=== PATIENT | male | born 1990 | race Caucasian/White ===

== ENCOUNTER 2017-02-16 09:50 | Emergency (ER) | payer OTHER ==
[2017-02-16 11:05] LABS: RBC URINE 3 /hpf (0-3); URINE BACTERIA RARE (<OCC); URINE BILIRUBIN NEGATIVE (NEGATIVE); URINE BLOOD NEGATIVE (NEGATIVE); URINE COLOR Yellow (YELLOW); URINE GLUCOSE (UA) NORMAL (Normal); URINE KETONE NEGATIVE (NEGATIVE); URINE LEUKOCYTE ESTERASE 1+ Leu/uL (Negative); URINE PROTEIN NEGATIVE (NEGATIVE); URINE UROBILINOGEN NORMAL mg/dL (0.2-1.0); WBC URINE 23 /hpf (0-5)
[2017-02-16] MEDS ORDERED: cefTRIAXone (Rocephin) 250 mg Inj IM STA (12:18)
--- NOTE | 2017-02-16 12:29 | C.PDOC ---
History Of Present Illness The patient reports intermittent right shoulder pain over the past several months. The patient states that he had a dislocation 1 year ago but was unable to follow up with an orthopedist. Patient also reports dysuria and frequency over the past several day. Denies fever, hematuria, vomiting, diarrhea, abdominal pain, back pain. Time Seen by Provider: 02/16/17 11:10 Chief Complaint (Nursing): Upper Extremity Problem/Injury History Per: Patient History/Exam Limitations: no limitations Onset/Duration Of Symptoms: Intermittent Episodes Current Symptoms Are (Timing): Still Present Severity: Mild Pain Scale Rating Of: 5 Quality Of Discomfort: Burning Associated Symptoms: denies: Fever, Chills, Vomiting, Back Pain, Chest Pain Alleviating Factors: None Recent travel outside of the [place]: Not to an Endemic Area (recent travel from the [facility]) Past Medical History Reviewed: Historical Data, Nursing Documentation, Vital Signs Vital Signs: Last Vital Signs Temp 98.2 F 02/16/17 13:15 Pulse 71 02/16/17 13:15 Resp 15 02/16/17 13:15 BP 119/78 02/16/17 13:15 Pulse Ox 99 02/16/17 13:15 - Medical History PMH: No Chronic Diseases Surgical History: No Surg Hx, Tonsillectomy Family History: States: No Known Family Hx - Social History Hx Alcohol Use: Yes Hx Substance Use: Yes - Immunization History Hx Tetanus Toxoid Vaccination: No Hx Influenza Vaccination: No Hx Pneumococcal Vaccination: No Review Of Systems Except As Marked, All Systems Reviewed And Found Negative. Constitutional: Negative for: Fever Gastrointestinal: Negative for: Abdominal Pain Genitourinary: Positive for: Dysuria, Frequency Musculoskeletal: Positive for: Shoulder Pain Neurological: Negative for: Weakness, Numbness Physical Exam - Physical Exam Appears: Well, No Acute Distress Skin: Normal Color, Warm, Dry Head: Atraumatic, Normacephalic Eye(s): bilateral: Normal Inspection, PERRL, EOMI Nose: Normal Oral Mucosa: Moist Throat: Normal Neck: Normal ROM, Supple Chest: Symmetrical, No Tenderness Cardiovascular: Rhythm Regular, No Friction Rub, No Murmur Respiratory: Normal Breath Sounds, No Rales, No Rhonchi, No Wheezing Gastrointestinal/Abdominal: Normal Exam, Soft, No Tenderness Back: Normal Inspection, No CVA Tenderness Extremity: Normal ROM, Capillary Refill (< 2 sec), No Deformity, Other ((+) pain to the right shoulder with abduction. No swelling or tenderness) Extremity: Bilateral: Normal Color And Temperature Pulses: Left Radial: Normal, Right Radial: Normal Neurological/Psych: Oriented x3, Normal Cranial Nerves, Normal Motor, Normal Sensation Gait: Steady ED Course And Treatment O2 Sat by Pulse Oximetry: 100 (on RA) Pulse Ox Interpretation: Normal Medical Decision Making Medical Decision Making: Shoulder xray was ordered and is negative for fracture or dislocation. Sling was offered but declined. UA and GC/Chlamydia sent. which is (+) for UTI, will treat with Rocephin and zithromax Disposition - Disposition Referrals: [facility] [place] [Outside] [facility] [Outside] Disposition: HOME/ ROUTINE Disposition Time: 12:25 Condition: GOOD Additional Instructions: Follow up with the Ortho clinic for the shoulder within 1 week. Return if worsened. Contact any sexual partners who may be affected. Prescriptions: Ciprofloxacin [Cipro] 1 tab PO BID #14 tab Instructions: Urinary Tract Infection in Men (GEN), Shoulder Sprain (ED) - Clinical Impression Clinical Impression: UTI (urinary tract infection), Shoulder pain
[2017-02-16 13:16] VITALS: BP 119/78; PULSE 71; RESP 15; TEMP 98.2
--- NOTE | 2017-02-16 13:22 | RAD ---
PROCEDURE: Radiographs of the Right Shoulder HISTORY: pain, limited ROM, dislocation 1 yr ago COMPARISON: No prior. FINDINGS: BONES: Normal. No fracture. JOINTS: Normal. Glenohumeral and acromioclavicular joints preserved. No osteoarthritis. SOFT TISSUES: Normal. OTHER FINDINGS: None. IMPRESSION: Normal radiographs of the right shoulder.
[2017-02-16 15:10] VITALS: O2SAT 100
== END 2017-02-16 13:15 | disposition home or self-care (01) ==
LOC: C.ER 09:50
DX: M25.511 Pain in right shoulder (principal); N39.0 Urinary tract infection, site not specified; B96.89 Other specified bacterial agents as the cause of diseases classified elsewhere
CPT/HCPCS: 73030; 81001; 87491; 87591; 96372; 99285; J0696

== ENCOUNTER 2018-02-14 09:31 | Day surgery (SDC) | payer OTHER ==
[2018-02-08 12:21] VITALS: BMI 24.8
[2018-02-14 10:31] VITALS: O2SAT 100
[2018-02-14] MEDS ORDERED: Bupivacaine HCl 0.25% PF (30 ml) Inj ONE (11:20)
[2018-02-14] MEDS ORDERED: Lidocaine Hydrochloride 0 ML INJ ONE (11:20)
[2018-02-14] MEDS ORDERED: ceFAZolin 1 gm in NS 2 GM/200 ML BAG IVPB ONE (11:27)
[2018-02-14] MEDS ORDERED: Midazolam 2 MG/2 ML VIAL ONE (11:43)
[2018-02-14] MEDS ORDERED: Rocuronium 10 mg/ml (5 ml) ONE (11:43)
[2018-02-14] MEDS ORDERED: Propofol 10 mg/ml Inj (20 ML) ONE (11:43)
[2018-02-14] MEDS ORDERED: Neostigmine Methylsulfate 3mg/3ml Syringe IV ONE (12:16)
[2018-02-14] MEDS ORDERED: Bacitracin Ointment 30 GM TUBE ONE (12:18)
[2018-02-14] MEDS ORDERED: Absorbable Gelatin Sponge Size 12-7 ONE (12:18)
[2018-02-14] MEDS ORDERED: Oxycodone/Acetaminophen 5/325 mg Tab PO PRN (12:37)
[2018-02-14] MEDS ORDERED: HYDROmorphone 0.5 mg/0.5 ml ISec IVP PRN (12:41)
[2018-02-14 14:03] VITALS: RESP 18
[2018-02-14 16:01] VITALS: BP 117/74; PULSE 90; TEMP 98
--- NOTE | 2018-02-14 23:07 | OP ---
PROCEDURE DATE: 02/14/2018 PREOPERATIVE DIAGNOSIS: Complex hemorrhoids. POSTOPERATIVE DIAGNOSES: Complex hemorrhoids with rectal polyp. PROCEDURES PERFORMED: 1. Complex hemorrhoidectomy. 2. Full-thickness transanal excision of rectal polyp. 3. Proctosigmoidoscopy. SURGEON: Donnie Yousif MD ANESTHESIA: General. BLOOD LOSS: 50 mL. POSTOPERATIVE CONDITION: Stable. INDICATIONS FOR SURGERY: A 27-year-old male, presents with rectal pain and bleeding secondary to complex mixed internal/external hemorrhoids, now will undergo complex hemorrhoidectomy along with a proctosigmoidoscopy. GROSS FINDINGS: Besides the complex mixed internal/external hemorrhoid, there was a small rectal polyp noted on proctosigmoidoscopy. A transanal full-thickness excision was performed. DESCRIPTION OF PROCEDURE: The patient was taken to the operating room. General anesthesia was administered and the patient was placed in prone position with buttocks taped open. The rectal area was prepped and draped. Proctosigmoidoscopy was carried out some 15 cm. Exam was limited by poor lighting but a small polyp was noted near the anal verge. Next, a complex right posterior hemorrhoid was grasped with a neel clamp and ligated at its base with a heavy Monocryl suture. A generous elliptical incision was made and flaps were raised to facilitate a tension-free closure. A running closure was then performed using the heavy Monocryl in a double layered fashion. The wound was hemostatic when finished. Next, a full-thickness biopsy was taken of the rectal polyp and the mucosa was reapproximated using heavy Monocryl. The anal canal was packed with Gelfoam and an anal block of 0.25% Marcaine was placed. The patient tolerated procedure well. Returned to recovery room in stable condition. Donnie Yousif MD
== END 2018-02-14 15:36 | disposition home or self-care (01) ==
LOC: C.SDS 09:31
PROVIDERS: ATTEND Surgery
DX: K64.4 Residual hemorrhoidal skin tags (principal); K64.8 Other hemorrhoids
CPT/HCPCS: 45172; 45330; 46255; 88304; J0690; J1885; J2001; J2250; J2405; J2704; J2710; J2765; J3010

== ENCOUNTER 2018-11-05 10:29 | Inpatient (IN) | payer OTHER ==
[2018-11-05 10:29] VITALS: BMI 24.8
--- NOTE | 2018-11-05 11:28 | C.PDOC ---
History Of Present Illness 28 y/o male presents to the ER for evaluation of hemorrhoids. Patient states that he was referred to ER by for hemorrhoidectomy. Patient reports that his last meal was at 8 pm last night.Denies having fever, chills, and other complaints at this time. Time Seen by Provider: 11/05/18 10:47 Chief Complaint (Nursing): GI Problem History Per: Patient History/Exam Limitations: no limitations Onset/Duration Of Symptoms: Days Current Symptoms Are (Timing): Still Present Severity: Moderate Past Medical History Reviewed: Historical Data, Nursing Documentation, Vital Signs Vital Signs: Last Vital Signs Temp 98.6 F 11/05/18 10:37 Pulse 77 11/05/18 10:37 Resp 20 11/05/18 10:37 BP 114/75 11/05/18 10:37 Pulse Ox 100 11/05/18 10:37 - Medical History PMH: No Chronic Diseases Surgical History: Tonsillectomy Family History: States: No Known Family Hx - Social History Hx Alcohol Use: Yes Hx Substance Use: No - Immunization History Hx Tetanus Toxoid Vaccination: No Hx Influenza Vaccination: Yes Hx Pneumococcal Vaccination: No Review Of Systems Except As Marked, All Systems Reviewed And Found Negative. Constitutional: Negative for: Fever, Chills Gastrointestinal: Positive for: Other (hemorrhoids). Negative for: Nausea, Vomiting Physical Exam - Physical Exam Appears: Non-toxic, No Acute Distress Skin: Normal Color, Warm, Dry Head: Atraumatic, Normacephalic Eye(s): bilateral: Normal Inspection Nose: Normal Oral Mucosa: Moist Neck: Supple Chest: Symmetrical Cardiovascular: Rhythm Regular Respiratory: Normal Breath Sounds, No Rales, No Rhonchi, No Wheezing Gastrointestinal/Abdominal: Soft, No Tenderness, No Guarding, No Rebound Neurological/Psych: Oriented x3, Normal Speech ED Course And Treatment - Laboratory Results Result Diagrams: 11/05/18 11:16 11/05/18 11:16 O2 Sat by Pulse Oximetry: 100 (RA) Pulse Ox Interpretation: Normal Medical Decision Making Medical Decision Making: Assessment: Hemorrhoids Plan: * Labs Updates: Case discussed with . Patient has been admitted for hemorrhoids. Disposition Discussed With .: Donnie Yousif Doctor Will See Patient In The: Hospital Counseled Patient/Family Regarding: Studies Performed, Diagnosis - Disposition Disposition: HOSPITALIZED Disposition Time: 11:27 Condition: FAIR Forms: [facility] (Vietnamese) - Clinical Impression Clinical Impression: Hemorrhoids - PA / ELDERLY CAREGIVER / Resident Statement MD/DO has reviewed & agrees with the documentation as recorded. - Scribe Statement The provider has reviewed the documentation as recorded by the Scribe Dick Del Angel Provider Attestation: All medical record entries made by the Scribe were at my direction and personally dictated by me. I have reviewed the chart and agree that the record accurately reflects my personal performance of the history, physical exam, medical decision making, and the department course for this patient. I have also personally directed, reviewed, and agree with the discharge instructions and disposition.
[2018-11-05 11:37] LABS: BASO % 0.7 % (0.0-2.0); EOS # 0.1 K/uL (0.0-0.7); HEMOGLOBIN 14.3 g/dL (12.0-18.0); LYMPH # 2.3 K/uL (1.0-4.3); LYMPH % 35.9 % (20.0-40.0); MEAN CORPUSCULAR HEMOGLOBIN 22.8 pg (27.0-31.0); MEAN CORPUSCULAR HGB CONC 33.1 g/dL (33.0-37.0); MONO # 0.3 K/uL (0.0-0.8); MONO % 5.3 % (0.0-10.0); NEUT # 3.7 K/uL (1.8-7.0); NEUT % 57.1 % (50.0-75.0); NRBC % 0.1 % (0.0-2.0); RBC 6.25 Mil/uL (4.40-5.90); WHITE BLOOD COUNT 6.4 K/uL (4.8-10.8)
[2018-11-05 11:39] LABS: MEAN CELL VOLUME 68.8 fL (80.0-94.0)
[2018-11-05 11:41] LABS: INR 1.3
[2018-11-05 11:51] LABS: ALB/GLOB RATIO 1.6 (1.0-2.1); ALBUMIN 4.9 g/dL (3.5-5.0); ALT/SGPT 22 U/L (21-72); AST/SGOT 25 U/L (17-59); BLOOD UREA NITROGEN 19 mg/dL (9-20); CALCIUM 9.3 mg/dl (8.6-10.4); GFR NON-AFRICAN AMERICAN > 60
[2018-11-05] MEDS ORDERED: Bupivacaine 0.25% 20 ML INJ IJ ONE (12:25)
[2018-11-05] MEDS ORDERED: ceFAZolin 1 gm in NS 1 GM/100 ML BAG IVPB ONE (12:25)
[2018-11-05] MEDS ORDERED: Propofol 10 mg/ml Inj (20 ML) ONE (12:34)
[2018-11-05] MEDS ORDERED: Midazolam 2 MG/2 ML VIAL ONE (12:34)
[2018-11-05] MEDS ORDERED: Oxycodone/Acetaminophen 5/325 mg Tab PO PRN (13:06)
[2018-11-05] MEDS ORDERED: Bacitracin 500 Units/gm Oint Foilpak UD ONE (13:07)
[2018-11-05] MEDS ORDERED: ceFAZolin IV 1 gm in Dextrose 1 GM/50 ML BAG IVPB STA (13:56)
[2018-11-05] MEDS: HYDROmorphone 0.5 mg/0.5 ml ISec IVP PRN ×2 (15:10→17:40)
[2018-11-05] MEDS: Dextrose 5%/0.45% NS 1,000 ML IV SCH (17:00)
[2018-11-05] MEDS ORDERED: HYDROmorphone 0.5 mg/0.5 ml ISec ONE (17:41)
--- NOTE | 2018-11-05 20:19 | CP.PCM.CON ---
<Chandrika Mendiola - Last Filed: 11/05/18 22:47> History of Present Illness - History of Present Illness History of Present Illness: Medicine consult for a patient who is a 28 year old male w/ no pmhx, s/p hemorrhoidectomy, POD #0. Patient presented for same day surgery with Dr. Yousif for the procedure, however was advised to stay the night to receive antibiotics and to monitor pain and vitals. Patient denies complaint. Reports minimal bleeding, no dizziness, chest pain, SOB, nausea. Patient has been tolerating his diet and has voided post-operatively. Patient reports pain is well controlled with ,medications prn. Patient plans to leave tomorrow after breakfast with discharge order in place. Review of Systems - Constitutional Constitutional: absent: Anorexia - Cardiovascular Cardiovascular: absent: Chest Pain - Respiratory Respiratory: absent: Dyspnea - Gastrointestinal Gastrointestinal: absent: Abdominal Pain, Nausea - Genitourinary Genitourinary: absent: Difficulty Urinating Past Patient History - Infectious Disease Hx of Infectious Diseases: None - Past Medical History & Family History Past Medical History?: Yes - Past Social History Smoking Status: Never Smoked - MUSCULOSKELETAL/RHEUMATOLOGICAL Hx Falls: No - GASTROINTESTINAL Hx Gastrointestinal Disorders: Yes Other/Comment: Hemorrhoids - PSYCHIATRIC Hx Substance Use: No - SURGICAL HISTORY Hx Tonsillectomy: Yes - ANESTHESIA Hx Anesthesia: Yes Hx Anesthesia Reactions: No Hx Malignant Hyperthermia: No Meds Allergies/Adverse Reactions: Allergies Allergy/AdvReac Type Severity Reaction Status Date / Time No Known Allergies Allergy Verified 11/05/18 10:39 - Medications Medications: Current Medications Docusate Sodium (Colace) 100 mg PO BID [facility] Last Admin: 11/05/18 18:51 Dose: 100 mg Dextrose/Sodium Chloride (Dextrose 5%/0.45% Ns 1000 Ml) 1,000 mls @ 60 mls/hr IV .[id number] [facility] Last Admin: 11/05/18 17:00 Dose: 0 mls Ketorolac Tromethamine (Toradol) 30 mg IVP Q6 PRN PRN Reason: pain 8-10 Stop: 11/10/18 13:07 Oxycodone/Acetaminophen (Percocet 5/325 Mg Tab) 2 tab PO Q4H PRN PRN Reason: pain Stop: 11/08/18 13:07 Pantoprazole Sodium (Protonix Inj) 40 mg IVP DAILY [facility] Physical Exam - Constitutional Appears: Non-toxic, No Acute Distress - Head Exam Head Exam: ATRAUMATIC, NORMAL INSPECTION, NORMOCEPHALIC - Eye Exam Eye Exam: EOMI, Normal appearance Pupil Exam: NORMAL ACCOMODATION - ENT Exam ENT Exam: Mucous Membranes Moist, Normal Exam - Neck Exam Neck exam: Positive for: Normal Inspection - Respiratory Exam Respiratory Exam: Clear to Auscultation Bilateral, NORMAL BREATHING PATTERN - Cardiovascular Exam Cardiovascular Exam: REGULAR RHYTHM, +S1, +S2. absent: Tachycardia - GI/Abdominal Exam GI & Abdominal Exam: Soft. absent: Distended - Extremities Exam Extremities exam: Positive for: normal inspection. Negative for: calf tenderness, pedal edema - Neurological Exam Neurological exam: Alert, Oriented x3 - Psychiatric Exam Psychiatric exam: Normal Affect, Normal Mood - Skin Skin Exam: Dry, Normal Color, Warm Results - Vital Signs Recent Vital Signs: Last Vital Signs Temp 98.3 F 11/05/18 18:50 Pulse 104 H 11/05/18 18:50 Resp 18 11/05/18 18:50 BP 115/70 11/05/18 18:50 Pulse Ox 99 11/05/18 18:50 - Labs Result Diagrams: 11/05/18 11:16 11/05/18 11:16 Labs: Laboratory Results - last 24 hr 11/05/18 11/05/18 11/05/18 11:16 11:16 11:16 WBC 6.4 RBC 6.25 H Hgb 14.3 Hct 43.0 MCV 68.8 L MCH 22.8 L MCHC 33.1 RDW 19.0 H Plt Count 214 MPV 9.0 Neut % (Auto) 57.1 Lymph % (Auto) 35.9 [place] % (Auto) 5.3 Eos % (Auto) 1.0 Baso % (Auto) 0.7 Neut # (Auto) 3.7 Lymph # (Auto) 2.3 [place] # (Auto) 0.3 Eos # (Auto) 0.1 Baso # (Auto) 0.0 Differential Comment PT 14.0 H INR 1.3 APTT 33 Sodium 139 Potassium 3.6 Chloride 102 Carbon Dioxide 26 Anion Gap 14 BUN 19 Creatinine 0.8 Est GFR ( Amer) > 60 Est GFR (Non-Af Amer) > 60 Random Glucose 94 D Calcium 9.3 Total Bilirubin 0.8 AST 25 ALT 22 Alkaline Phosphatase 79 Total Protein 7.9 Albumin 4.9 Globulin 3.0 Albumin/Globulin Ratio 1.6 Blood Type Antibody Screen 11/05/18 11:17 WBC RBC Hgb Hct MCV MCH MCHC RDW Plt Count MPV Neut % (Auto) Lymph % (Auto) [place] % (Auto) Eos % (Auto) Baso % (Auto) Neut # (Auto) Lymph # (Auto) [place] # (Auto) Eos # (Auto) Baso # (Auto) Differential Comment PT INR APTT Sodium Potassium Chloride Carbon Dioxide Anion Gap BUN Creatinine Est GFR ( Amer) Est GFR (Non-Af Amer) Random Glucose Calcium Total Bilirubin AST ALT Alkaline Phosphatase Total Protein Albumin Globulin Albumin/Globulin Ratio Blood Type B POSITIVE Antibody Screen Negative Assessment & Plan - Assessment and Plan (Free Text) Assessment: Medicine consult for medical management for patient, 28 year old male with no pmhx, s/p hemorrhoidectomy, POD #0 Plan: s/p hemorroidectomy -afebrile -tachycardia post operatively likely 2/2 pain -pain medication, toradol and percocet prn -tolerating regular diet -f/u am labs -f/u wound cx -f/u with Dr. Yousif as instructed Ppx -colace -GI ppx, protonix -DVT ppx, SCDs Will sign off in am after reassessing patient and labs Discussed with Dr. Mejia -Chandrika Mendiola, PGY-1 <Cody Mejia - Last Filed: 11/06/18 06:41> Meds - Medications Medications: Current Medications Docusate Sodium (Colace) 100 mg PO BID [facility] Last Admin: 11/05/18 18:51 Dose: 100 mg Dextrose/Sodium Chloride (Dextrose 5%/0.45% Ns 1000 Ml) 1,000 mls @ 60 mls/hr IV .[id number] [facility] Last Admin: 11/05/18 17:00 Dose: 0 mls Ketorolac Tromethamine (Toradol) 30 mg IVP Q6 PRN PRN Reason: pain 8-10 Stop: 11/10/18 13:07 Last Admin: 11/06/18 01:25 Dose: 30 mg Oxycodone/Acetaminophen (Percocet 5/325 Mg Tab) 2 tab PO Q4H PRN PRN Reason: pain Stop: 11/08/18 13:07 Pantoprazole Sodium (Protonix Inj) 40 mg IVP DAILY [facility] Results - Vital Signs Recent Vital Signs: Last Vital Signs Temp 98.3 F 11/06/18 04:30 Pulse 88 11/06/18 04:30 Resp 18 11/06/18 04:30 BP 116/73 11/06/18 04:30 Pulse Ox 99 11/06/18 04:30 - Labs Result Diagrams: 11/05/18 11:16 11/05/18 11:16 Labs: Laboratory Results - last 24 hr 11/05/18 11/05/18 11/05/18 11:16 11:16 11:16 WBC 6.4 RBC 6.25 H Hgb 14.3 Hct 43.0 MCV 68.8 L MCH 22.8 L MCHC 33.1 RDW 19.0 H Plt Count 214 MPV 9.0 Neut % (Auto) 57.1 Lymph % (Auto) 35.9 [place] % (Auto) 5.3 Eos % (Auto) 1.0 Baso % (Auto) 0.7 Neut # (Auto) 3.7 Lymph # (Auto) 2.3 [place] # (Auto) 0.3 Eos # (Auto) 0.1 Baso # (Auto) 0.0 Differential Comment PT 14.0 H INR 1.3 APTT 33 Sodium 139 Potassium 3.6 Chloride 102 Carbon Dioxide 26 Anion Gap 14 BUN 19 Creatinine 0.8 Est GFR ( Amer) > 60 Est GFR (Non-Af Amer) > 60 Random Glucose 94 D Calcium 9.3 Total Bilirubin 0.8 AST 25 ALT 22 Alkaline Phosphatase 79 Total Protein 7.9 Albumin 4.9 Globulin 3.0 Albumin/Globulin Ratio 1.6 Blood Type Antibody Screen 11/05/18 11:17 WBC RBC Hgb Hct MCV MCH MCHC RDW Plt Count MPV Neut % (Auto) Lymph % (Auto) [place] % (Auto) Eos % (Auto) Baso % (Auto) Neut # (Auto) Lymph # (Auto) [place] # (Auto) Eos # (Auto) Baso # (Auto) Differential Comment PT INR APTT Sodium Potassium Chloride Carbon Dioxide Anion Gap BUN Creatinine Est GFR ( Amer) Est GFR (Non-Af Amer) Random Glucose Calcium Total Bilirubin AST ALT Alkaline Phosphatase Total Protein Albumin Globulin Albumin/Globulin Ratio Blood Type B POSITIVE Antibody Screen Negative Assessment & Plan - Date & Time Date: 11/06/18 (I have seen and examined the patient. I agree with the findings and plan of care as documented by Dr. Mendiola. Status post hemorrhoid surgery. To be managed by Dr Yousif. No acute or chronic medical problems to be managed at this time by hospitalist service. Please contact if acute issue occurs. ) Time: 06:39 Attending/Attestation - Attestation I have personally seen and examined this patient.: Yes I have fully participated in the care of the patient.: Yes I have reviewed all pertinent clinical information: Yes
--- NOTE | 2018-11-06 02:20 | CP.PCM.PN ---
Subjective - Date & Time of Evaluation Date of Evaluation: 11/06/18 Time of Evaluation: 06:00 - Subjective Subjective: Patient examined at bedside. No acute overnight events. Patient reports pain is well controlled with toradol and percocet. Patient reports he is eating well and denies nausea/vomiting. Patient denies surgical site bleeding Objective - Vital Signs/Intake and Output Vital Signs (last 24 hours): Temp Pulse Resp BP Pulse Ox 98.3 F 104 H 18 115/70 99 11/05/18 18:50 11/05/18 18:50 11/05/18 18:50 11/05/18 18:50 11/05/18 18:50 Intake and Output: 11/05/18 11/06/18 18:59 06:59 Intake Total 1100 250 Balance 1100 250 - Medications Medications: Current Medications Docusate Sodium (Colace) 100 mg PO BID [facility] Last Admin: 11/05/18 18:51 Dose: 100 mg Dextrose/Sodium Chloride (Dextrose 5%/0.45% Ns 1000 Ml) 1,000 mls @ 60 mls/hr IV .[id number] [facility] Last Admin: 11/05/18 17:00 Dose: 0 mls Ketorolac Tromethamine (Toradol) 30 mg IVP Q6 PRN PRN Reason: pain 8-10 Stop: 11/10/18 13:07 Last Admin: 11/06/18 01:25 Dose: 30 mg Oxycodone/Acetaminophen (Percocet 5/325 Mg Tab) 2 tab PO Q4H PRN PRN Reason: pain Stop: 11/08/18 13:07 Pantoprazole Sodium (Protonix Inj) 40 mg IVP DAILY [facility] - Labs Labs: 11/05/18 11:16 11/05/18 11:16 PT 14.0 SECONDS (9.7-12.2) H 11/05/18 11:16 INR 1.3 11/05/18 11:16 APTT 33 SECONDS (21-34) 11/05/18 11:16 - Constitutional Appears: Non-toxic, No Acute Distress - Head Exam Head Exam: ATRAUMATIC, NORMAL INSPECTION, NORMOCEPHALIC - Eye Exam Eye Exam: EOMI, Normal appearance - ENT Exam ENT Exam: Mucous Membranes Moist, Normal Exam - Neck Exam Neck Exam: Normal Inspection - Respiratory Exam Respiratory Exam: Clear to Ausculation Bilateral, NORMAL BREATHING PATTERN - Cardiovascular Exam Cardiovascular Exam: REGULAR RHYTHM. absent: Tachycardia - GI/Abdominal Exam GI & Abdominal Exam: Soft. absent: Tenderness - Extremities Exam Extremities Exam: Normal Inspection. absent: Calf Tenderness, Pedal Edema - Neurological Exam Neurological Exam: Alert, Awake, Oriented x3 - Skin Skin Exam: Dry, Normal Color, Warm Assessment and Plan - Assessment and Plan (Free Text) Assessment: Medicine consult for medical management for patient, 28 year old male with no pmhx, s/p hemorrhoidectomy, POD #1 Plan: s/p hemorroidectomy -afebrile -tachycardia post operatively likely 2/2 pain -pain medication, toradol and percocet prn -tolerating regular diet -f/u am labs -f/u wound cx -f/u with Dr. Yousif as instructed Ppx -colace -GI ppx, protonix -DVT ppx, SCDs Medicine signing off as patient is stable for discharge home per primary, discharge order already in Discussed with Dr. Mejia -Chandrika Mendiola, PGY-1
[2018-11-06 05:27] VITALS: O2SAT 99
[2018-11-06] MEDS: Dextrose 5%/0.45% NS 1,000 ML IV SCH (06:00)
[2018-11-06 06:59] LABS: BASO % 0.2 % (0.0-2.0); HEMOGLOBIN 13.2 g/dL (12.0-18.0); LYMPH # 1.9 K/uL (1.0-4.3); LYMPH % 22.3 % (20.0-40.0); MEAN CELL VOLUME 68.3 fL (80.0-94.0); MEAN CORPUSCULAR HGB CONC 33.6 g/dL (33.0-37.0); MEAN PLATELET VOLUME 8.8 fL (7.2-11.7); MONO # 0.5 K/uL (0.0-0.8); MONO % 6.1 % (0.0-10.0); NEUT # 6.1 K/uL (1.8-7.0); NEUT % 71.4 % (50.0-75.0); NRBC % 0.1 % (0.0-2.0); RBC 5.76 Mil/uL (4.40-5.90); RED CELL DISTRIBUTION WIDTH 18.9 % (11.5-14.5); WHITE BLOOD COUNT 8.5 K/uL (4.8-10.8)
[2018-11-06 08:47] VITALS: BP 113/72; PULSE 84; RESP 20; TEMP 97.7
--- NOTE | 2018-11-07 06:38 | OP ---
PROCEDURE DATE: 11/05/2018 PREOPERATIVE DIAGNOSIS: Hemorrhoids. POSTOPERATIVE DIAGNOSIS: Hemorrhoids with multiple anal and full thickness rectal polyp. PROCEDURES PERFORMED: 1. Hemorrhoidectomy. 2. Transanal full thickness removal of rectal polyp. 3. Removal of multiple anal polyps. SURGEON: Donnie Yousif MD ANESTHESIA: General. BLOOD LOSS: 20 mL. POSTOPERATIVE CONDITION: Stable. INDICATIONS FOR SURGERY: This is a 28-year-old male who, 9 months ago, underwent removal of a right posterior hemorrhoid. He represented to my office with a history of occasional pain and bleeding and a fullness in his rectum. He was found to have a new hemorrhoid in the left lateral position along with a possible fissure. He is readmitted for examination under anesthesia. GROSS FINDINGS: Close exam of the anus revealed several small polyps, possibly consistent with condyloma. These were removed during the surgery. There was also a similar polyp within the rectum which was removed full thickness and repaired with an advancement flap closure. Otherwise, there was a small hemorrhoid in the left lateral position which was removed. DESCRIPTION OF PROCEDURE: The patient was taken to the operating room. General anesthesia was administered. He was placed in the prone jackknife position, and the buttocks were taped open. The rectal area was then prepped and draped. Attention was first turned to the anal area with several small polyps, possibly condyloma removed using the Bovie and sent for specimen. Bleeding was controlled using the Bovie. A rectal retractor was then placed, and a larger polyp within the rectum was grasped with a clamp and excised full thickness. Full-thickness tissue flaps were raised to prevent anal stenosis and provided tension-free repair. After counter incisions were made in the flaps, 22 sq cm advancement flap closure was performed with multiple layers of heavy Monocryl. A hemorrhoid in the left lateral position was grasped using a neel clamp, ligated at its base, and excised. During excision of the hemorrhoid, there was a fair amount of bleeding and a pararectal blood vessel was identified, repaired with 7-0 Prolene, and blood flow was confirmed by Doppler. The mucosa was then repaired with a running 2-0 Monocryl suture. The wound was hemostatic. It permitted passage of a larger rectal dilator to prevent stenosis. The wounds were dressed sterilely. The outside of the anus had bacitracin placed over the areas of the polyp excision. The patient tolerated procedure well, returned to recovery room in stable condition. Donnie Yousif MD
== END 2018-11-06 11:13 | disposition home or self-care (01) | DRG 158 ==
LOC: C.6T 10:29 → C.ER 10:29 → C.SDS 11:26 → C.6T 11:26 → C.SDS 11:51 → C.9S 16:56 → C.6T 18:20
PROVIDERS: ADMIT Surgery; ATTEND Surgery
PROC: 06BY0ZC Excision of Hemorrhoidal Plexus, Open Approach (ICD-10-PCS; 2018-11-05)
PROC: 0HX9XZZ Transfer Perineum Skin, External Approach (ICD-10-PCS; 2018-11-05)
PROC: 0DBQXZX Excision of Anus, External Approach, Diagnostic (ICD-10-PCS; principal; 2018-11-05 15:00)
DX: K62.1 Rectal polyp (principal); K64.4 Residual hemorrhoidal skin tags; A63.0 Anogenital (venereal) warts